=== PATIENT | male | born 1970 | race Caucasian/White ===

== ENCOUNTER → 2018-07-11 | Outpatient (CLI) | payer MEDICARE, MEDICAID | END | disposition home or self-care (01) | LOC: CFH 12:43 | PROVIDERS: ATTEND Internal Medicine Critical Care Medicine | DX: J90 Pleural effusion, not elsewhere classified (principal); I31.3 Pericardial effusion (noninflammatory); R91.8 Other nonspecific abnormal finding of lung field | CPT/HCPCS: 71250 ==

== ENCOUNTER → 2018-11-14 | Outpatient (CLI) | payer MEDICARE, MEDICAID ==
[~2018-11-14] MED LIST: ADCIRCA; AMBR10TA3 PO; ATOR20TA PO; BENZ1TAB61 PO; CLON1TAB11 PO; HALO10TA PO; LITH300T3 PO; OMEP-110 PO; OXYGEN NS; PROP10TA PO; RISP3TAB3 PO; SPIR25TA5 PO
== END | disposition home or self-care (01) ==
LOC: STAR 13:39
PROVIDERS: ATTEND Internal Medicine Gastroenterology
DX: Z01.818 Encounter for other preprocedural examination (principal); Z12.11 Encounter for screening for malignant neoplasm of colon; R19.5 Other fecal abnormalities
CPT/HCPCS: 93005

== ENCOUNTER 2018-11-21 07:12 | Day surgery (SDC) | payer MEDICARE, MEDICAID ==
[~2018-11-21] VITALS: Ht 185.4 cm; Wt 124.5 kg
[2018-11-21] MEDS ORDERED: LACTATED RINGERS 1,000 ML IV SCH (07:40)
[2018-11-21 07:44] VITALS: BP 119/76
[2018-11-21 08:28] LABS: ALANINE AMINOTRANSFERASE 22 U/L (12-78); ALBUMIN 3.7 g/dL (3.4-5.0); ANION GAP 9 mmol/L (5-15); CALCIUM 8.2 mg/dL (8.5-10.1); CHLORIDE 107 mmol/L (98-107); CREATININE 1.14 mg/dL (0.7-1.3)
[2018-11-21 08:30] LABS: ALKALINE PHOSPHATASE 81 U/L (45-117); BILIRUBIN,TOTAL 0.9 mg/dL (0.2-1.0); TOTAL PROTEIN 6.7 g/dL (6.4-8.2)
[2018-11-21] MEDS ORDERED: PROPOFOL 10 MG/ML, 50ML ONE ×4 (09:02)
[2018-11-21] MEDS ORDERED: METHYLENE BLUE 10 MG/ML 10ML ONE (09:23)
== END 2018-11-21 14:35 | disposition home or self-care (01) ==
LOC: OUT 07:12
PROVIDERS: ATTEND Internal Medicine Gastroenterology
DX: D12.0 Benign neoplasm of cecum (principal); D12.2 Benign neoplasm of ascending colon; D12.3 Benign neoplasm of transverse colon; D12.4 Benign neoplasm of descending colon; D12.5 Benign neoplasm of sigmoid colon; D12.8 Benign neoplasm of rectum; K57.30 Diverticulosis of large intestine without perforation or abscess without bleeding; J44.9 Chronic obstructive pulmonary disease, unspecified; K21.9 Gastro-esophageal reflux disease without esophagitis; F31.9 Bipolar disorder, unspecified; E78.2 Mixed hyperlipidemia; E66.9 Obesity, unspecified; Z68.36 Body mass index [BMI] 36.0-36.9, adult; Z98.890 Other specified postprocedural states; Z79.899 Other long term (current) drug therapy
CPT/HCPCS: 36415; 45380; 45385; 80053; 88305; J2704; Q9968

== ENCOUNTER 2019-01-12 13:36 | Outpatient (CLI) | payer MEDICARE, MEDICAID ==
[~2019-01-12 13:36] MED LIST changes: -PROP10TA PO; +PROP10TA16 PO
== END 2019-01-12 23:59 | disposition home or self-care (01) ==
LOC: CFH 13:36
PROVIDERS: ATTEND Registered Nurse
DX: R91.1 Solitary pulmonary nodule (principal); I31.3 Pericardial effusion (noninflammatory); J90 Pleural effusion, not elsewhere classified; J98.11 Atelectasis
CPT/HCPCS: 71250

== ENCOUNTER 2019-03-09 12:40 | Outpatient (CLI) | payer MEDICARE, MEDICAID | END 2019-03-09 23:59 | disposition home or self-care (01) | LOC: CVU 12:40 | PROVIDERS: ATTEND Internal Medicine Cardiovascular Disease | DX: I27.20 Pulmonary hypertension, unspecified (principal); I35.8 Other nonrheumatic aortic valve disorders; E78.5 Hyperlipidemia, unspecified; Z87.891 Personal history of nicotine dependence; Z99.81 Dependence on supplemental oxygen | CPT/HCPCS: 0399T; 93306 ==

== ENCOUNTER 2019-04-16 10:17 | Day surgery (SDC) | payer MEDICARE, MEDICAID ==
[2019-04-15 11:31] VITALS: BP 141/73
[2019-04-15 11:31] LABS: MEAN CORPUSCULAR HEMOGLOBIN 24.9 pg (27.5-34.5); MEAN CORPUSCULAR HGB CONC 30.9 g/dL (33.2-36.2); MEAN CORPUSCULAR VOLUME 80.5 fL (81-97); MEAN PLATELET VOLUME 7.5 fL (7.4-10.4); PLATELET COUNT 187 x10^3/uL (130-400); RED BLOOD COUNT 4.87 x10^6/uL (4.38-5.82); RED CELL DISTRIBUTION WIDTH 28.4 % (9.4-14.8)
[2019-04-15 11:33] LABS: CALCIUM 8.5 mg/dL (8.5-10.1); CHLORIDE 110 mmol/L (98-107); CREATININE 1.19 mg/dL (0.7-1.3)
[2019-04-15 11:43] LABS: ANION GAP 5 mmol/L (5-15)
[2019-04-15 12:20] LABS: BASOPHILS # (AUTO) 0.03 x10^3/uL (0-0.1); BASOPHILS % (AUTO) 1 % (0-1); EOSINOPHILS % (AUTO) 4 % (1-7); LYMPHOCYTES # (AUTO) 0.86 x10^3/uL (1-3.4); LYMPHOCYTES % (AUTO) 16 % (22-44); MD MORPH REVIEW ONLY; MONOCYTES # (AUTO) 0.45 x10^3/uL (0.2-0.8); MONOCYTES % (AUTO) 8 % (2-9); NEUTROPHILS # (AUTO) 3.85 x10^3/uL (1.8-6.8); NEUTROPHILS % (AUTO) 72 % (42-75)
[2019-04-15 12:21] LABS: <PLATELET ESTIMATE> ADEQUATE; <PLT MORPHOLOGY> NORMAL PLT MORPH; ANISOCYTOSIS 1+; MICROCYTOSIS 1+; POLYCHROMASIA 1+
[~2019-04-16] VITALS: Ht 185.4 cm; Wt 124.0 kg
[~2019-04-16 10:17] MED LIST changes: +ESCI10TA10 PO; +FERR-46 PO; +TAMS-11 PO
[2019-04-16] MEDS ORDERED: DIPHENHYDRAMINE 50 MG/ML, 1ML IVPush ONE (10:30)
[2019-04-16] MEDS ORDERED: TADA20TA33 PO (10:42)
[2019-04-16] MEDS ORDERED: ESCI10TA10 PO (10:46)
[2019-04-16] MEDS ORDERED: FENTANYL PF 100 MCG/2ML ONE (10:51)
[2019-04-16] MEDS ORDERED: LIDOCAINE 1%, 20ML ONE (10:51)
[2019-04-16] MEDS ORDERED: MIDAZOLAM 1 MG/ML, 5ML ONE (10:51)
[2019-04-16] MEDS ORDERED: DIPHENHYDRAMINE 50 MG/ML, 1ML ONE (11:08)
== END 2019-04-16 13:30 | disposition home or self-care (01) ==
LOC: CACL 10:17
PROVIDERS: ATTEND Internal Medicine Cardiovascular Disease
DX: I27.0 Primary pulmonary hypertension (principal); F19.90 Other psychoactive substance use, unspecified, uncomplicated; Z87.891 Personal history of nicotine dependence
CPT/HCPCS: 36415; 80048; 85025; 93451; 99156; C1769; C1894; J1200; J2250; J3010

== ENCOUNTER 2019-06-23 10:28 | Outpatient (CLI) | payer MEDICARE, MEDICAID ==
[~2019-06-23 10:28] MED LIST changes: +TADA20TA33 PO
== END 2019-06-23 23:59 | disposition home or self-care (01) ==
LOC: STAR 10:28
PROVIDERS: ATTEND Internal Medicine Gastroenterology
DX: Z02.9 Encounter for administrative examinations, unspecified (principal)

== ENCOUNTER 2019-07-01 08:09 | Day surgery (SDC) | payer MEDICARE, MEDICAID ==
[~2019-07-01] VITALS: Ht 185.4 cm; Wt 108.3 kg
[2019-07-01] MEDS ORDERED: LACTATED RINGERS 1,000 ML IV SCH (08:50)
[2019-07-01 08:51] VITALS: BP 101/65
[2019-07-01] MEDS ORDERED: LIDOCAINE-MPF 1%, 2ML INFIL ONE (09:00)
[2019-07-01] MEDS ORDERED: PROPOFOL 10 MG/ML, 20ML ONE (09:53)
== END 2019-07-01 12:10 | disposition home or self-care (01) ==
LOC: OUT 08:09
PROVIDERS: ATTEND Internal Medicine Gastroenterology
DX: D12.2 Benign neoplasm of ascending colon (principal); D12.3 Benign neoplasm of transverse colon; K62.1 Rectal polyp; K57.30 Diverticulosis of large intestine without perforation or abscess without bleeding; K21.0 Gastro-esophageal reflux disease with esophagitis; K29.70 Gastritis, unspecified, without bleeding; B96.81 Helicobacter pylori [H. pylori] as the cause of diseases classified elsewhere; D50.9 Iron deficiency anemia, unspecified; E78.5 Hyperlipidemia, unspecified; I10 Essential (primary) hypertension; J44.9 Chronic obstructive pulmonary disease, unspecified; I27.20 Pulmonary hypertension, unspecified; F31.9 Bipolar disorder, unspecified; Z86.010 Personal history of colon polyps; Z79.899 Other long term (current) drug therapy; Z99.81 Dependence on supplemental oxygen
CPT/HCPCS: 43239; 43248; 45385; 88305; J2704; J7120

== ENCOUNTER → 2019-11-13 | Outpatient (CLI) | payer MEDICARE, MEDICAID | END | disposition home or self-care (01) | LOC: CFH 10:46 | PROVIDERS: ATTEND Internal Medicine Cardiovascular Disease | DX: I35.8 Other nonrheumatic aortic valve disorders (principal); I27.20 Pulmonary hypertension, unspecified; Z87.891 Personal history of nicotine dependence | CPT/HCPCS: 93306 ==

== ENCOUNTER → 2020-11-17 | Outpatient (CLI) | payer MEDICARE, MEDICAID ==
[~2020-11-17] MED LIST changes: -RISP3TAB3 PO; +RISP3TAB58 PO
== END | disposition home or self-care (01) ==
LOC: CFH 15:48
PROVIDERS: ATTEND Internal Medicine Cardiovascular Disease
DX: I35.8 Other nonrheumatic aortic valve disorders (principal); I51.7 Cardiomegaly; I27.20 Pulmonary hypertension, unspecified; Z87.891 Personal history of nicotine dependence
CPT/HCPCS: 93306